=== PATIENT | female | born 1955 ===

== ENCOUNTER 2018-05-13 22:31 | Outpatient (REF) | payer SELFPAY ==
[2018-05-13 23:09] LABS: Abs Immature Grans 0.01 k/cumm (0.0-0.09); Absolute Basophil Count 0.04 k/cumm (0.0-0.2); Absolute Lymphocyte Count 2.35 k/cumm (1.2-3.4); Absolute Monocyte Count 0.54 k/cumm (0.11-0.7); Absolute Neutrophil Count 4.55 k/cumm (1.2-6.7); Basophils % 0.5; Eosinophils % 1.3; HGB 14.5 g/dL (12.0-15.5); Immature Grans % 0.1; Mean Corpuscular Hemoglobin 30.4 pg (27.0-33.0); Mean Corpuscular Volume 92.2 fL (80-95); Mean Platelet Volume 11.5 fL (8.0-11.0); Monocytes % 7.1; Platelet Count 309 x1000/uL (130-400); RBC 4.77 m/cumm (4.00-5.20); White Blood Cell Count 7.59 k/cumm (4.4-10.8)
[2018-05-13 23:29] LABS: ALT 24 U/L (12-78); AST 17 U/L (15-37); Albumin 4.3 g/dL (3.4-5.0); Alkaline Phosphatase 85 U/L (46-116); Anion Gap 10.6 mmol/L (3-11); BUN 18 mg/dL (7-18); Bilirubin, Total 0.9 mg/dL (0.2-1.0); CO2 28.4 mmol/L (21.0-32.0); CREATININE 0.85 mg/dL (0.55-1.02); Calcium 9.8 mg/dL (8.5-10.1); Chloride 101 mmol/L (98-107); Glucose 92 mg/dL (70-100); Lipase 189 U/L (73-393); Potassium 4.3 mmol/L (3.5-5.1); Sodium 140 mmol/L (136-145); TSH (W/Ref FT4) 3.06 uIU/mL (0.358-3.74); Total Protein 8.3 g/dL (6.4-8.2)
== END 2018-05-13 22:51 ==
LOC: NCHCN 22:31
PROVIDERS: PCP Specialist/Technologist Athletic Trainer; Visit Provider Specialist/Technologist Athletic Trainer
DX: R10.32 Left lower quadrant pain (principal); Z87.19 Personal history of other diseases of the digestive system; R68.83 Chills (without fever)
CPT/HCPCS: 80053; 83690; 84443; 85025